=== PATIENT | female | born 1985 | race Caucasian/White ===

== ENCOUNTER 2016-08-28 12:27 | Emergency (ER) | payer OTHER ==
[2016-08-28] MEDS ORDERED: ALBUTEROL SULFATE 2.5 MG/3 ML VIAL.NEB IH ONE (13:45)
[2016-08-28] MEDS ORDERED: ALBUTEROL SULFATE 2.5 MG/0.5 ML VIAL.NEB IH ONE (13:47)
--- NOTE | 2016-08-28 13:54 | ERNOTE ---
Time Seen by Provider: 08/28/16 13:27 Stated Complaint: TROUBLE BREATHING/SLEEPING Presenting Symptoms:: cough Source: patient Exam Limitations: no limitations Immunizations: IMMUNIZATION HX Immunizations Up to Date Yes History of Influenza Vaccine No Hx Pneumococcal Vaccination No Allergies/Adverse Reactions: Allergies ciprofloxacin [From Cipro] Allergy (Verified 08/28/16 12:46) ciprofloxacin HCl [From Cipro] Allergy (Verified 08/28/16 12:46) Home Medications: HOME MEDICATIONS Acetaminophen [Tylenol] 1,000 mg PO PRN PRN 06/03/15 [Last Taken 06/03/15 08:30] Oxymetazoline HCl [Afrin Nasal [place]] 2 sprays NS BID 06/03/15 [Last Taken Unknown] Albuterol Sulfate [Proair Hfa] 2 puff IH Q4H PRN #1 inhaler 08/28/16 [Last Taken Unknown] - History of Present Ilness Narrative: Patient started with URI symptoms one week ago, sore throat has improved but still congested, cough, some shortness of breath. For the last six days her family has been living in the [place] [id number] as there lease got cancelled on their apartment. five days ago her partner started with a rash that was diagnosed as hives and that is healing off now. The patient started with a rash on her arms, legs, waistline 3-4 days ago, non itching Review of Systems - Review of Systems Constitutional: Absent: fever, chills ENT: Present: ear pain, nose congestion, nasal drainage, sore throat Respiratory: Present: See HPI, shortness of breath, cough Cardiology: Absent: chest pain Gastrointestinal/Abdominal: Absent: nausea, vomiting, diarrhea, abdominal pain Genitourinary: Present: no symptoms reported Musculoskeletal: Absent: back pain Skin: Present: See HPI, rash - Patient's Past Medical History Patient History - Medical: No pertinent hx Patient History - Cardiac/Respiratory: No pertinent hx Patient History - Cancer: No Hx of Cancer Patient History - Surgical Procedures: Back Surgery, Patient History - Other: None LMP (females 10-50): other - Social History Living Situations: home Abuse History: No History of abuse Psych History: No pertinent hx Does anyone smoke in the home?: Yes Smoking Status: Current every day smoker Cigarettes Packs Per Day: 0.5 Alcohol Use: occasionally Drug Use: marijuana - Immunizations Immunizations Up to Date: Yes Hx Pneumococcal Vaccination: No History of Influenza Vaccine: No Physical Exam - Physical Exam General Appearance: Present: wd/wn, alert, no apparent distress Eye Exam: Normal inspection: bilateral, PERRL: bilateral Ears, Nose, Throat: Present: abnormal TM (L) - bulging,pink, nasal congestion, pharyngeal erythema. Absent: abnormal TM (R) Neck: Present: normal inspection, nontender. Absent: lymphadenopathy (R), lymphadenopathy (L) Respiratory: Present: no respiratory distress, normal breath sounds, wheezing - few Cardiovascular/Chest: Present: regular rate, rhythm, no murmur Gastrointestinal/Abdominal: Present: nontender Neurological Exam: Present: alert, oriented, normal mood/affect Skin Exam: Present: normal color, warm/dry, other - multiple papules (most likely bites) on thighs, arms, waistline, right side of neck, some in rows ED Progress - Results and Orders Patient's Lab Results:: I have reviewed the patient's lab results. - Vital Signs Patient's Vital Signs:: I have reviewed the patient's vital signs. Vital Signs: Vital Signs 08/28/16 08/28/16 12:43 12:50 Temperature 37.1 C Pulse Rate 89 89 Respiratory 96 H Rate Blood Pressure 111/69 O2 Sat by Pulse 96 Oximetry - Progress/Reassessment Chief Complaint: Upper Respiratory Symptoms Progress Note-Subjective: 08/28/16 14:14 feeling better after albuterol treatment Departure - Departure Clinical Impression: Bronchitis, Rash Disposition: Home self-care Condition: Good Instructions: Bedbugs, [id number], Acute Bronchitis, [id number], Form - Excuse from Work, School, or Physical Activity Referrals: Shabnam Stone MD [Staff Physician] - Prescriptions: Albuterol Sulfate [Proair Hfa] 2 puff IH Q4H PRN #1 inhaler PRN Reason: Shortness Of Breath
[2016-08-28 14:08] VITALS: BP 119/62
== END 2016-08-28 14:19 | disposition home or self-care (01) ==
LOC: ER 12:27
DX: J20.9 Acute bronchitis, unspecified (principal); R21 Rash and other nonspecific skin eruption; Z72.0 Tobacco use